=== PATIENT | female | born 1955 | race African-American/Black ===

== ENCOUNTER 2018-09-02 06:46 | Emergency (ER) | payer OTHER ==
[~2018-09-02] VITALS: Ht 160 cm; Wt 53.5 kg
[2018-09-02] MEDS ORDERED: SENNA-DOCUSATE1 EAC1 PO (07:51)
[2018-09-02] MEDS ORDERED: NORCO 5-325 TA1 EAC1 PO (07:51)
[2018-09-02 07:58] VITALS: BP 127/67
== END 2018-09-02 07:58 | disposition home or self-care (01) ==
LOC: ER 06:46
DX: S22.31XA Fracture of one rib, right side, initial encounter for closed fracture (principal); Z88.6 Allergy status to analgesic agent; Z88.2 Allergy status to sulfonamides; X50.1XXA Overexertion from prolonged static or awkward postures, initial encounter; Y93.89 Activity, other specified; Y92.89 Other specified places as the place of occurrence of the external cause; Y99.8 Other external cause status

== ENCOUNTER 2019-03-23 04:01 | Emergency (ER) | payer OTHER ==
[~2019-03-23] VITALS: Ht 157.5 cm; Wt 51.7 kg
[~2019-03-23 04:01] MED LIST: NORCO 5-325 TA1 EAC1 PO; SENNA-DOCUSATE1 EAC1 PO
[2019-03-23] MEDS ORDERED: COZAAR 25 MG TA25 M1 PO (04:22)
[2019-03-23] MEDS ORDERED: NAPROXEN250 MG PO (04:22)
[2019-03-23] MEDS ORDERED: CARVEDILOL25 MG PO (04:22)
[2019-03-23] MEDS ORDERED: ACID REDUCER20 M1 PO (04:23)
[2019-03-23] MEDS ORDERED: ASA81BEC PO (04:23)
[2019-03-23] MEDS ORDERED: ACETAMINOPHEN PO (04:24)
[2019-03-23] MEDS ORDERED: MOBIC15 MG PO ×2 (05:43→05:45)
[2019-03-23] MEDS ORDERED: NORCO 5-325 TA1 EAC1 PO ×2 (05:43→05:46)
[2019-03-23 06:00] VITALS: BP 139/80
== END 2019-03-23 06:11 | disposition home or self-care (01) ==
LOC: ER 04:01
DX: M46.1 Sacroiliitis, not elsewhere classified (principal); I10 Essential (primary) hypertension; Z88.2 Allergy status to sulfonamides; Z88.6 Allergy status to analgesic agent